=== PATIENT | male | born 1980 | race Caucasian/White ===

== ENCOUNTER 2020-09-13 22:59 | Emergency (ER) | payer OTHER ==
[~2020-09-13] VITALS: Ht 167.6 cm; Wt 97.5 kg
[2020-09-14 00:31] LABS: CALCIUM 8.8 mg/dL (8.5-10.1); CREATININE 1.2 mg/dL (0.7-1.3); POTASSIUM 4.1 mmol/L (3.5-5.1)
[2020-09-14 00:35] LABS: ALBUMIN 4.2 g/dL (3.4-5.0); TOTAL BILIRUBIN 0.2 mg/dL (0.2-1.0); TOTAL PROTEIN 7.8 g/dL (6.4-8.2)
[2020-09-14 01:00] LABS: ABSOLUTE NEUTROPHILS 10.5 thou/uL (1.4-8.2); BASOPHILS 0.1 % (0.0-2.0); EOSINOPHILS 0.3 % (0.0-3.0); HEMATOCRIT 42.9 % (42.0-52.0); HEMOGLOBIN 14.4 gm/dL (14.0-18.0); LYMPHOCYTES 10.4 % (24.0-44.0); MCH 30.6 pg (26.0-34.0); MCHC 33.5 g/dL (28.0-37.0); MCV 91.4 fL (80.0-100.0); PLATELET COUNT 310 thou/uL (150-400); POLYS 85.2 % (36.0-66.0); RDW 12.5 % (10.5-14.5); WBC 12.4 thou/uL (4.0-11.0)
[2020-09-14] MEDS ORDERED: NORCO 5-325 TA1 EAC2 PO (01:16)
[2020-09-14 01:21] VITALS: BP 123/72
--- NOTE | 2020-09-14 07:18 | EKG ---
[place] [address] [address] [facility] [place] [address] ELECTROCARDIOGRAM REPORT Name: ERICKA PRASADMARYIMAN [id number] Admission: 09/13/20 Attend Phys: Discharge: 09/14/20 Date of : 76 Report #: [id number] [facility] ED Test Date: 2020-09-13 Test Time: 23:42:03 Pat Name: IMAN TERRELL Department: Room: Gender: M Residential Mental Health Worker: as : 1980 Requested By: Shakeel Moody Order Number: [id number] MD: Jordan Bautista Measurements Intervals Shubert Rate: 81 P: 15 MN: 163 QRS: 33 QRSD: 99 T: 29 QT: 355 QTc: 412 Interpretive Statements Sinus rhythm RSR' in V1 or V2, right VCD or RVH ST elev, probable normal early repol pattern No previous ECG available for comparison Electronically Signed On 09-14-2020 7:18:09 DIGITAL PRINTER by Jordan Bautista [email or web address] <ELECTRONICALLY SIGNED> By: Jordan Bautista MD, [facility] 09/14/20 [id number] Jordan Bautista MD, FACC /EPI
== END 2020-09-14 01:21 | disposition home or self-care (01) ==
LOC: ER 22:59
PROVIDERS: Emergency Medicine
DX: K80.20 Calculus of gallbladder without cholecystitis without obstruction (principal); F17.210 Nicotine dependence, cigarettes, uncomplicated